=== PATIENT | female | born 1995 | race Caucasian/White ===

== ENCOUNTER 2024-10-30 10:30 | Inpatient (IN) | payer SELFPAY ==
[~2024-10-30] VITALS: Ht 154.9 cm; Wt 87.4 kg
[2024-10-30 11:10] LABS: APPEARANCE,URINE HAZY (CLEAR); GLUCOSE, URINE (UA) NEGATIVE (NEGATIVE); LEUKOCYTE ESTERASE ,URINE LARGE (NEGATIVE); NITRATE,URINE NEGATIVE (NEGATIVE); OCCULT BLOOD,URINE MODERATE (NEGATIVE); SPECIFIC GRAVITIY, URINE 1.032 (1.003-1.030)
[2024-10-30 11:24] LABS: SQUAMOUS EPITHELIAL CELL,UR Many /LPF (None Seen)
[2024-10-30 11:36] LABS: PLATELET COUNT (AUTO) 463 K/uL (150-450); RED BLOOD CELL COUNT(AUTO) 4.40 MIL/uL (4.00-5.20); RED CELL DISTRIBUTION WIDTH 15.9 % (11.5-14.5); WHITE BLOOD COUNT (AUTO) 13.9 K/uL (4.5-11.0)
[2024-10-30 11:46] LABS: CALCIUM, TOTAL 8.4 mg/dL (8.8-10.5); CREATININE 0.78 mg/dL (0.60-1.30); GLOMERULAR FILTR. RATE CALC > 60 mL/min (>60); GLUCOSE,RANDOM 90 mg/dL (70-110); SODIUM SERUM 138 mmol/L (136-145); UREA NITROGEN, BLOOD 8 mg/dL (7-18)
[2024-10-30 12:03] LABS: HCG,QUANTITATIVE < 1 mIU/mL (0-6)
[2024-10-30] MEDS: SODIUM CHLORIDE 0.9% 500 ML IV ONE (13:00)
[2024-10-30] MEDS: CefTRIAXone 1 GM/DEXTROSE 50 ML IV ONE (13:00)
[2024-10-30] MEDS ORDERED: HYDROCODONE/ACETAMINOPHEN 5-325 MG TABLET PO PRN (18:00)
[2024-10-30] MEDS ORDERED: MAGNESIUM SULFATE 4 GM/WATER 100 ML IV PRN (18:00)
[2024-10-30] MEDS ORDERED: BISACODYL 10 MG RECTAL RECTAL SUPPOSITORY PR PRN (18:00)
[2024-10-30] MEDS ORDERED: ALBUTEROL SULFATE 2.5 MG/0.5 ML NEB SOLUTION NEB PRN (18:00)
[2024-10-30] MEDS ORDERED: MAGNESIUM HYDROXIDE SUSPENSION 30 ML UDCUP PO PRN (18:00)
[2024-10-30] MEDS ORDERED: MORPHINE SULFATE 2 MG/ML SYRINGE IVP PRN (18:00)
[2024-10-30] MEDS ORDERED: ONDANSETRON HCL 4 MG/2 ML VIAL IVP PRN (18:00)
[2024-10-30] MEDS ORDERED: ZOLPIDEM TARTRATE 5 MG TABLET PO PRN (18:00)
[2024-10-30] MEDS ORDERED: MAGNESIUM SULFATE 2 GM/WATER 50 ML IV PRN (18:00)
[2024-10-30] MEDS ORDERED: ACETAMINOPHEN 325 MG TABLET PO PRN (18:00)
[2024-10-30] MEDS ORDERED: MAGNESIUM OXIDE 400 MG TABLET PO PRN (18:00)
[2024-10-30] MEDS ORDERED: IPRATROPIUM BROMIDE 0.5 MG/2.5 ML NEB SOLUTION NEB PRN (18:00)
[2024-10-30 18:29] VITALS: BP 112/58; PULSE 78; RESP 18; TEMP 97.5; O2SAT 100
[2024-10-30 19:14] VITALS: BP 118/78; PULSE 95; RESP 18; TEMP 99; O2SAT 98
[2024-10-30] MEDS: POTASSIUM CHLORIDE 20 MEQ ER TABLET PO PRN (22:08)
[2024-10-30] MEDS: HEPARIN SODIUM,PORCINE 5,000 UNITS/ML VIAL SQ SCH (22:09)
[2024-10-31 04:14] VITALS: BP 129/90; PULSE 94; RESP 18; TEMP 99; O2SAT 99
[2024-10-31 06:40] LABS: PH,URINE DRUG SCREEN 6.0 (5.0-8.0)
[2024-10-31 06:46] LABS: ALCOHOL, URINE DRUG SCREEN NEGATIVE (NEGATIVE); AMPHET/METH SCREEN,URINE POSITIVE (NEGATIVE); BARBITURATE SCREEN, URINE NEGATIVE (NEGATIVE); CANNABINOID SCREEN,URINE NEGATIVE (NEGATIVE); COCAINE SCREEN,URINE NEGATIVE (NEGATIVE); METHADONE SCREEN, URINE NEGATIVE (NEGATIVE)
[2024-10-31 08:27] VITALS: BP 105/64; PULSE 79; RESP 18; TEMP 98.4; O2SAT 100
[2024-10-31] MEDS: PANTOPRAZOLE SODIUM 40 MG DR TABLET PO SCH (08:40)
[2024-10-31] MEDS ORDERED: CIPR250T6 PO (09:40)
[2024-10-31] MEDS: POTASSIUM CHLORIDE 20 MEQ ER TABLET PO ONE (10:04)
[2024-10-31] MEDS: CefTRIAXone 1 GM/DEXTROSE 50 ML IV SCH (13:11)
[2024-10-31] MEDS ORDERED: SODIUM CHLORIDE 0.9% 500 ML IV ONE (13:18)
[2024-10-31 16:05] VITALS: BP 111/64; PULSE 81; RESP 18; TEMP 98.8; O2SAT 98
== END 2024-10-31 17:50 | disposition home or self-care (01) | DRG 690 ==
LOC: EMS 10:38 → EDH 16:50 → 6S 17:57
PROVIDERS: ADMIT Hospitalist; ATTEND Hospitalist
DX: N39.0 Urinary tract infection, site not specified (principal); R65.10 Systemic inflammatory response syndrome (SIRS) of non-infectious origin without acute organ dysfunction; E87.6 Hypokalemia; E66.9 Obesity, unspecified; F17.210 Nicotine dependence, cigarettes, uncomplicated; F15.10 Other stimulant abuse, uncomplicated; Z68.36 Body mass index [BMI] 36.0-36.9, adult
CPT/HCPCS: 74176; 80048; 80307; 81001; 82040; 83690; 83735; 84132; 84702; 85025; 87086; 96365; 99285; J0696; J1644; J7040